=== PATIENT | female | born 1985 | race Caucasian/White ===

== ENCOUNTER 2016-04-23 15:55 | Emergency (ER) | payer OTHER ==
[~2016-04-23] VITALS: Wt 66.7 kg
[2016-04-23] MEDS ORDERED: VITAMIN D50000 I3 PO (16:17)
[2016-04-23] MEDS ORDERED: PRENATAL1 TA3 PO (16:17)
[2016-04-23] MEDS ORDERED: Fioricet 325 MG1 TAB PO (18:46)
[2016-04-23] MEDS ORDERED: DICLEGIS DR 101 EACH PO (18:48)
== END 2016-04-23 18:48 | disposition home or self-care (01) ==
LOC: ED 15:55
DX: O99.351 Diseases of the nervous system complicating pregnancy, first trimester (principal); G43.019 Migraine without aura, intractable, without status migrainosus; Z79.899 Other long term (current) drug therapy; Z3A.11 11 weeks gestation of pregnancy

== ENCOUNTER 2017-07-26 09:55 | Emergency (ER) | payer OTHER ==
[~2017-07-26] VITALS: Ht 167.6 cm; Wt 56.7 kg
[~2017-07-26 09:55] MED LIST: DICLEGIS DR 101 EACH PO; Fioricet 325 MG1 TAB PO; PRENATAL1 TA3 PO; VITAMIN D50000 I3 PO
[2017-07-26 10:17] LABS: BASO % 0.4 % (0.0-1.0); EOS # 0.1 10*3/uL (0.0-0.4); EOS % 1.6 % (1.0-4.0); HEMATOCRIT 39.9 % (37.0-47.0); HEMOGLOBIN 13.2 g/dl (12.0-16.0); LYMPH # 1.6 10*3/uL (1.3-4.4); LYMPH % 33.4 % (27.0-41.0); MEAN CELL VOLUME 84.4 fl (81.0-99.0); MEAN CORPUSCULAR HGB 27.9 pg (27.0-31.0); MEAN CORPUSCULAR HGB CONC 33.1 g/dl (33.0-37.0); MEAN PLATELET VOLUME 9.8 fl (9.6-12.3); MONO # 0.3 10*3/uL (0.1-1.0); MONO % 5.9 % (3.0-9.0); NEUT # 2.9 10*3/uL (2.3-7.9); NEUT % 58.5 % (47.0-73.0); PLATELET COUNT AUTOMATED 249 10*3/uL (130-400); RED BLOOD COUNT 4.73 10*6/uL (4.10-5.10); RED CELL DISTRI WIDTH 12.6 % (0-14.5); WHITE BLOOD COUNT 4.9 10*3/uL (4.8-10.8)
[2017-07-26 10:31] LABS: ALBUMIN 3.8 gm/dl (3.1-4.5); ALKALINE PHOSPHATASE 70 U/L (45-117); BUN 10 mg/dl (7-24); CHLORIDE 107 mmol/L (98-107); CREATININE 0.63 mg/dL (0.55-1.02); POTASSIUM 4.5 mmol/L (3.5-5.1); SGOT/AST 14 IU/L (3-35); SGPT/ALT 20 U/L (12-78); SODIUM 141 mmol/L (136-145); TOTAL PROTEIN 7.1 gm/dL (6.4-8.2)
[2017-07-26] MEDS ORDERED: Meclizine25 MG PO (11:27)
== END 2017-07-26 11:28 | disposition home or self-care (01) ==
LOC: ED 09:55
PROVIDERS: Nurse Practitioner Family
DX: R42 Dizziness and giddiness (principal); G43.909 Migraine, unspecified, not intractable, without status migrainosus; Z79.899 Other long term (current) drug therapy